=== PATIENT | female | born 1960 | race Caucasian/White ===

== ENCOUNTER 2017-06-15 19:45 | Emergency (ER) | payer OTHER ==
[~2017-06-15] VITALS: Ht 167.6 cm; Wt 63.5 kg
--- NOTE | 2017-06-15 19:50 | ED CARDIAC/CP/PALPITATIONS ---
History of Present Illness General Chief Complaint: Chest Pain Stated Complaint: CP, LEFT SIDED JAW AND SHOULDER PAIN Source: patient Exam Limitations: no limitations Vital Signs & Intake/Output Vital Signs & Intake/Output Vital Signs Date Time Temp Pulse Resp B/P B/P Pulse O2 O2 Flow FiO2 Mean Ox Delivery Rate 06/16 2251 97.7 60 16 130/82 98 Room Air 06/15 2021 Room Air 06/15 2021 67 16 175/87 Room Air 06/15 1952 96.7 99 18 180/118 97 Room Air Allergies Coded Allergies: No Known Allergies (06/15/17) Triage Nurses Notes Reviewed? yes Onset: Gradual Duration: hour(s):, waxing and waning Timing: recent history Location: left axilla, left jaw Radiation: no radiation Prior Chest Pain/Card Workup: no prior chest pain Modifying Factors: Worsens With: palpation. Associated Symptoms: left breast pain HPI: 56 yo woman h/o stage iv metastatic breast cancer, on herceptin, ITP, recently diagnosed with brain mets, on decadron, presents with left sided chest/breast/axillary pain and left jaw pain since 3/4 pm, without diaphoresis, palpitations, dyspnea, weakness, fever, chills. She declines pain meds. She notes the pain is worse with palpation. Past History Travel History Traveled to [place] past 21 day No Medical History Any Pertinent Medical History? see below for history Blood Disorders: ITP Cancer(s): breast cancer, breast ca w/ mets to bone and brain Surgical History Surgical History: non-contributory Family History Hx Contributory? No Review of Systems Review of Systems Constitutional: Reports: no symptoms. EENTM: Reports: no symptoms. Respiratory: Reports: no symptoms. Cardiovascular: Reports: no symptoms. GI: Reports: no symptoms. Genitourinary: Reports: no symptoms. Musculoskeletal: Reports: no symptoms. Skin: Reports: no symptoms. Neurological/Psychological: Reports: no symptoms. Hematologic/Endocrine: Reports: no symptoms. Immunologic/Allergic: Reports: no symptoms. All Other Systems: Reviewed and Negative Physical Exam Physical Exam General Appearance: well developed/nourished, mild distress Head: atraumatic, normal appearance Eyes: Bilateral: normal appearance. Ears, Nose, Throat: normal pharynx, normal ENT inspection, left jaw tenderness to palpation. Neck: normal inspection, supple, full range of motion Respiratory: normal breath sounds, no respiratory distress, quiet respiration, lungs clear, left sided chest and axillary tenderness to palpation. Cardiovascular: regular rate/rhythm Gastrointestinal: normal bowel sounds, soft, non-tender Back: normal inspection Extremities: normal inspection Neurologic/Psych: no motor/sensory deficits, awake, alert, oriented x 3 Skin: intact, normal color, warm/dry Core Measures ACS in differential dx? No CVA/TIA Diagnosis No Sepsis Present: No Sepsis Focused Exam Completed? No Progress Differential Diagnosis: chest wall pain vs mi vs acs vs other. Plan of Care: Orders Procedure Date/time Status TROPONIN LEVEL 06/15 2229 Complete EKG 06/15 2229 Active TROPONIN LEVEL 06/15 1948 Complete LIPASE 06/15 1948 Complete HEPATIC FUNCTION PANEL 06/15 1948 Complete D-DIMER 06/15 1948 Complete CBC WITHOUT DIFFERENTIAL 06/15 1948 Complete BASIC METABOLIC PANEL 06/15 1948 Complete AMYLASE 06/15 1948 Complete EKG 06/15 1945 Active Laboratory Tests 06/15/172234: Troponin I < 0.01 06/15/17 2000: Anion Gap 12, Estimated GFR > 60, BUN/Creatinine Ratio 45.0 H, Glucose 191 H, Calcium 9.1, Total Bilirubin 0.8, Direct Bilirubin 0.3, AST 45 H, ALT 49, Alkaline Phosphatase 142 H, Troponin I < 0.01, Total Protein 6.5, Albumin 4.2, Amylase 63, Lipase 205, D-Dimer High Sensitivty 586 H, CBC w Diff NO MAN DIFF REQ, RBC 4.10 L, MCV 93.6, MCH 30.3, MCHC 32.4 L, RDW 19.2 H, MPV 7.6, Gran % 89.1 H, Lymphocytes % 2.1 L, Monocytes % 8.8, Eosinophils % 0, Basophils % 0, Absolute Granulocytes 8.3 H, Absolute Lymphocytes 0.2 L, Absolute Monocytes 0.8 H, Absolute Eosinophils 0, Absolute Basophils 0 Diagnostic Imaging: Viewed by Me: Radiology Read. Discussed w/RAD: Radiology Read. Radiology Impression: PATIENT: BRUNILDA NAYLOR PRESENT AGE: 56 PATIENT ACCOUNT NO: [id number] : 56 LOCATION: [facility] ORDERING PHYSICIAN: Ramy Brown MD SERVICE DATE: 05/05/18-2124 EXAM TYPE: CAT - CTA CHEST-PULMONARY EMBOLISM EXAMINATION: CT ANGIOGRAM OF THE CHEST WITH AND WITHOUT CONTRAST (CT PULMONARY ANGIOGRAM FOR PE) CLINICAL INFORMATION: Dyspnea, positive d-dimer COMPARISON: Chest CT 05/21/2017 TECHNIQUE: Prior to contrast administration, noncontrast localization images were obtained. Subsequently, multidetector volumetric imaging was performed from the thoracic inlet to below the diaphragms following the administration of 95 mL Optiray 320 intravenous contrast. No contrast reaction reported. Sagittal, coronal, and MIP oblique sagittal reformatted images were obtained on the CT workstation, uploaded to PACS, and reviewed. Total exam dose-length product 265 mGy-cm. FINDINGS: QUALITY OF STUDY/CONTRAST BOLUS: Satisfactory PULMONARY ARTERIES: No central or segmental pulmonary emboli. THORACIC AORTA: No aneurysm or dissection. LUN mm nodule along the left major fissure, image 27/58. There is mild thickening along the right major fissure, image 240/463. Unchanged tiny scattered 2 to 3 mm micronodules, for example in the left upper lobe, image 139/ 463. No new pulmonary nodules seen. PLEURA: No pleural effusion or pneumothorax. MEDIASTINUM: Normal heart size. No pericardial effusion. No hilar or mediastinal lymphadenopathy. There is a 1.2 x 0.7 cm subcarinal lymph node. 7 mm left hilar lymph node. No evidence of septal bowing or right heart strain. CHEST WALL/ AXILLA: There are right axillary surgical clips. No axillary or internal mammary lymphadenopathy. Patient is status post right mastectomy. There is focal abnormal soft tissue within the subareolar left breast. OSSEOUS STRUCTURES: There is extensive sclerotic metastatic disease diffusely throughout the spine and multiple bilateral ribs. There is abnormal sclerosis in the inferior sternum. There is abnormal sclerosis of the scapula, bilaterally, and left greater than right proximal humerus. UPPER ABDOMEN: Liver is diffusely hypoattenuating consistent with diffuse hepatic steatosis. Multiple liver metastases are seen as well. These measure slightly larger than on the prior study 05/21/2017, for example 3.1 x 2.2 cm compared to 2.8 x 2.4 cm there is focal fatty sparing along the anterior margin of the left lobe of the liver. There is a 1.5 x 1.3 cm left adrenal mass, not convincingly changed. No reflux of contrast into the hepatic veins to suggest elevated right heart pressures. IMPRESSION: No pulmonary embolus seen. Although comparison between different phases of contrast-enhancement are limited, there appears to be progression of hepatic metastatic disease compared to the prior study 05/21/2017. Extensive sclerotic osseous metastatic disease. Status post right mastectomy. Left breast mass, not grossly changed. Multiple liver metastases are again seen. There is a different phase of contrast enhancement on the study compared to the prior study but some of the metastases appear to be slightly larger. Unchanged left adrenal mass. Unchanged pulmonary micronodules. VTE: negative DICTATED BY: Chandler Tadeo MD DATE/TIME DICTATED:06/15/172230 NETWORK DEVELOPMENT COORDINATOR:DENNY DATE/TIME TRANSCRIBED:06/15/172230 CONFIDENTIAL, DO NOT COPY WITHOUT APPROPRIATE AUTHORIZATION. <Electronically signed in Other Vendor System> SIGNED BY: Chandler Tadeo MD 06/15/17 2636 Initial ED EKG: normal axis, normal intervals, normal p-waves, normal QRS complex, normal sinus rhythm Repeat EKG: unchanged Departure Departure Disposition: HOME OR SELF CARE Condition: Stable Clinical Impression Primary Impression: Chest pain Referrals: Chelsea BOWERS,Daniel Christopher (PCP/Family) Departure Forms: Customer Survey General Discharge Information Comments 06/15/17, 21:35... Pt with +dimer.... doing well... discussed at length... ct angio ordered. 06/15/17. 23:20... trop neg x 2, ekg benign x 2, ctangio negative for PE... discussed results with patient, including mets in liver... pt following closely with heme onc... pt stable for discharge... she declines pain meds in ED, but has her regimen at home. Critical Care Note Critical Care Note Critical Care Time: non-applicable
[2017-06-15 20:08] LABS: ABSOLUTE BASOPHIL COUNT 0 /CUMM (0.0-0.2); ABSOLUTE EOSINOPHIL COUNT 0 /CUMM (0.0-0.7); ABSOLUTE GRANULOCYTE CT 8.3 /CUMM (1.4-6.5); ABSOLUTE LYMPH COUNT 0.2 /CUMM (1.2-3.4); ABSOLUTE MONOCYTE COUNT 0.8 /CUMM (0.10-0.60); BASOPHIL % 0 % (0.0-2.0); EOSINOPHIL % 0 % (0-5); GRANULOCYTE % 89.1 % (42.2-75.2); HEMATOCRIT 38.4 % (37-47); MEAN CORPUSCULAR HGB 30.3 PG (27.0-31.0); MEAN CORPUSCULAR HGB CONC 32.4 G/DL (33.0-37.0); MEAN CORPUSCULAR VOLUME 93.6 FL (81.0-99.0); MEAN PLATELET VOLUME 7.6 FL (7.4-10.4); PLATELET COUNT 254 /CUMM (130-400); RBC DISTRIBUTION WIDTH 19.2 % (11.5-14.5); WHITE BLOOD CELL COUNT 9.3 /CUMM (4.8-10.8)
--- NOTE | 2017-06-15 22:45 | CT SCAN REPORT ---
EXAMINATION: CT ANGIOGRAM OF THE CHEST WITH AND WITHOUT CONTRAST (CT PULMONARY ANGIOGRAM FOR PE) CLINICAL INFORMATION: Dyspnea, positive d-dimer COMPARISON: Chest CT 05/21/2017 TECHNIQUE: Prior to contrast administration, noncontrast localization images were obtained. Subsequently, multidetector volumetric imaging was performed from the thoracic inlet to below the diaphragms following the administration of 95 mL Optiray 320 intravenous contrast. No contrast reaction reported. Sagittal, coronal, and MIP oblique sagittal reformatted images were obtained on the CT workstation, uploaded to PACS, and reviewed. Total exam dose-length product 265 mGy-cm. FINDINGS: QUALITY OF STUDY/CONTRAST BOLUS: Satisfactory PULMONARY ARTERIES: No central or segmental pulmonary emboli. THORACIC AORTA: No aneurysm or dissection. LUN mm nodule along the left major fissure, image 27/58. There is mild thickening along the right major fissure, image 240/463. Unchanged tiny scattered 2 to 3 mm micronodules, for example in the left upper lobe, image 139/463. No new pulmonary nodules seen. PLEURA: No pleural effusion or pneumothorax. MEDIASTINUM: Normal heart size. No pericardial effusion. No hilar or mediastinal lymphadenopathy. There is a 1.2 x 0.7 cm subcarinal lymph node. 7 mm left hilar lymph node. No evidence of septal bowing or right heart strain. CHEST WALL/AXILLA: There are right axillary surgical clips. No axillary or internal mammary lymphadenopathy. Patient is status post right mastectomy. There is focal abnormal soft tissue within the subareolar left breast. OSSEOUS STRUCTURES: There is extensive sclerotic metastatic disease diffusely throughout the spine and multiple bilateral ribs. There is abnormal sclerosis in the inferior sternum. There is abnormal sclerosis of the scapula, bilaterally, and left greater than right proximal humerus. UPPER ABDOMEN: Liver is diffusely hypoattenuating consistent with diffuse hepatic steatosis. Multiple liver metastases are seen as well. These measure slightly larger than on the prior study 05/21/2017, for example 3.1 x 2.2 cm compared to 2.8 x 2.4 cm there is focal fatty sparing along the anterior margin of the left lobe of the liver. There is a 1.5 x 1.3 cm left adrenal mass, not convincingly changed. No reflux of contrast into the hepatic veins to suggest elevated right heart pressures. IMPRESSION: No pulmonary embolus seen. Although comparison between different phases of contrast-enhancement are limited, there appears to be progression of hepatic metastatic disease compared to the prior study 05/21/2017. Extensive sclerotic osseous metastatic disease. Status post right mastectomy. Left breast mass, not grossly changed. Multiple liver metastases are again seen. There is a different phase of contrast enhancement on the study compared to the prior study but some of the metastases appear to be slightly larger. Unchanged left adrenal mass. Unchanged pulmonary micronodules. VTE: negative
[2017-06-15 22:52] VITALS: BP 130/82
[2017-07-10] MEDS ORDERED: HERCEPTIN150 MG IV (18:32)
[2017-07-10] MEDS ORDERED: GEMZAR IV (18:32)
[2017-07-10] MEDS ORDERED: ALLEGRA ALLERG180 M1 PO (18:33)
[2017-07-10] MEDS ORDERED: VITAMIN D2000 UNIT PO (18:34)
[2017-07-12] MEDS ORDERED: KETOROLAC TROME10 M1 PO (18:01)
[2017-07-16] MEDS ORDERED: DEXAMETHASONE1 M1 PO (14:27)
[2017-07-16] MEDS ORDERED: VITAMIN D2000 UNI1 PO (14:28)
[2017-07-16] MEDS ORDERED: OMEPRAZOLE40 M1 PO (14:28)
[2017-07-16] MEDS ORDERED: ZITHROMAX250 M2 PO (15:47)
[2017-07-27] MEDS ORDERED: DEXAMETHASONE1 M1 PO (12:32)
[2017-10-19] MEDS ORDERED: ELIQUIS5 M1 PO (10:18)
== END 2017-06-15 23:30 ==
LOC: ERH 19:45
PROVIDERS: Pediatrics
DX: R07.9 Chest pain, unspecified (principal)
CPT/HCPCS: 93005; 93010

== ENCOUNTER → 2017-08-02 | Day surgery (SDC) | payer OTHER ==
[~2017-08-02] MED LIST: ALLEGRA ALLERG180 M1 PO; DEXAMETHASONE1 M1 PO; DEXAMETHASONE4 M1 PO; GEMZAR IV; HERCEPTIN150 MG IV; KETOROLAC TROME10 M1 PO; OMEPRAZOLE40 M1 PO; VITAMIN D2000 UNI1 PO; VITAMIN D2000 UNIT PO; ZITHROMAX250 M2 PO
--- NOTE | 2017-08-02 11:55 | RADIOLOGY REPORT ---
EXAMINATION: XR PORTABLE CHEST CLINICAL INFORMATION: Port-A-Cath placement. COMPARISON: Chest CT 07/16/2017. TECHNIQUE: Portable frontal view of the chest was obtained. FINDINGS: Right subclavian Port-A-Cath is noted, which terminates over the right atrium near the caval atrial junction. Right axillary surgical clips. The lungs are well expanded. No pneumothorax or pleural effusion. Subtle linear opacities in the left lung suspicious for mild atelectasis. No mediastinal widening. No acute osseous abnormalities. IMPRESSION: New right Port-A-Cath with lead terminating over the right atrium near the caval atrial junction. No pneumothorax.
--- NOTE | 2017-08-02 17:26 | RADIOLOGY REPORT ---
EXAMINATION:\H\ \N\XR CHEST CLINICAL INFORMATION: Port-A-Cath insertion. COMPARISON: Chest CT from 07/16/2017. TECHNIQUE: Intraoperative fluoroscopic imaging of the chest was utilized for Port-A-Cath insertion. NUMBER OF SAVED IMAGES: 5. FLUOROSCOPY TIME: 0.1 minutes. DOSE: 0.785 mGy (0.0255 mGym2) FINDINGS: Please refer to the operative report. There is a right chest wall medication port with subclavian catheter that enters the superior vena cava. The tip of the catheter is difficult to visualize on these fluoroscopic images, but it appears to be near the level of junction of the right atrium and superior vena cava. IMPRESSION: Fluoroscopic imaging of the chest was utilized at the time of the Port-A-Cath insertion.
--- NOTE | 2017-08-05 18:09 | Operative Report ---
See Addendum Operative/Inv Procedure Report Surgery Date: 08/02/17 Name of Procedure: Fluoroscopic guided tunneled insertion of right subclavian vein Port-A-Cath Pre-Operative Diagnosis: Stage IV breast cancer Post-Operative Diagnosis: Same Estimated Blood Loss: scant Surgeon/Process Control Programmer: Kathryn BOWERS,Solomon Wood Anesthesia: general endotracheal tube Operative/Procedure Note Note: With the patient supine on the OR table, right arm tucked, head not turned, after induction of MAC sedation, the patient's right subclavian area, including the shoulder neck and contralateral chest, were prepped and draped in the usual sterile fashion. After injecting local anesthetic in the right infraclavicular area, skin, subcutaneous to the clavicle, and inferiorly where the pocket will be, the patient was repositioned to Trendelenburg. Putting your right index finger on the sternal notch and thumb pressing down lateral to the curve of the clavicle, I made a puncture through the skin with the 15 blade scalpel next to thumb. Then along that line towards the tip of your finger, advance a large- bore needle, bevel towards the feet, on a slip tip 10 mL syringe barrel flat against the deltoid, advancing to bone and then "walking" it down just under the clavicle keeping the needle flat as possible, while maintaining vacuum with the plunger, accessing the subclavian venous blood, then replacing the syringe with a wire, sliding in with minimum resistance, confirming the position with the C- arm fluoroscope, making sure the wire is traveling down along the cava towards the right side of the heart and not up or across, and no ectopy. Next I secured the wire to the drape, measured (approximately 23 cm), cut and attached the catheter to the port. Approximately 3-4 cm inferior to the stick site a 2-1/2 cm long skin incision was made with a 15 blade scalpel along Langers lines. It was deepened with cautery and a space was developed inferiorly under the subcutaneous layer. The Port-A-Cath was laid in there and secured in [address] with 2-0 Prolene through the holes in the port, the sutures were kept loose on snaps at this point. Next the catheter was tunneled up subcutaneously with a snap and brought out through the stick site next to the wire. Then the dilator only, was passed over the wire until you could feel it slide under the clavicle, then removed, then re-advanced this time with the peel-away sheath over it, while advancing simultaneously pull the dilator out and advance the sheath, eventually pulling out the dilator and wire completely. Then the catheter was put into the sheath as far as it'll go then while holding that knuckle down with DeBakey's, gently peel-away the sheath with your fitter's assistant. Now the correct position of the catheter was confirmed with the fluoroscope, using a Verde needle and heparinized saline solution, the catheter was first aspirated then flushed with approximately 3 mL's, with minimal resistance. The patient was repositioned to neutral, after tying down the 2 Prolenes, the larger incision was closed in layers, 3-0 Vicryl deep and 4-0 subcuticular Monocryl for the skin, and one subcuticular Monocryl for the stick site. Both areas were covered with Mastisol Steri-Strips Telfa and Tegaderm. Chest x-ray was ordered to be done in the recovery room. Lap and sponge counts were correct. Wound expectancy was clean, IV fluids crystalloid, complications none, patient tolerated the procedure well was awakened and returned to the recovery room in satisfactory condition.
== END ==
LOC: STS 02:00
DX: C50.919 Malignant neoplasm of unspecified site of unspecified female breast (principal); C79.51 Secondary malignant neoplasm of bone; C79.31 Secondary malignant neoplasm of brain; Z86.711 Personal history of pulmonary embolism; K21.9 Gastro-esophageal reflux disease without esophagitis
CPT/HCPCS: 71045; C1751; J0690; J1644; J2250; J3490